=== PATIENT | male | born 1985 | race Caucasian/White ===

== ENCOUNTER 2021-06-14 08:56 | Outpatient (RCR) | payer OTHER, SELFPAY ==
--- NOTE | 2021-06-14 09:59 | HP.PTEVAL ---
Patient's Visit Information CHARLY WYLIE is a 35 year old M referred to Physical Therapy by Dr. Stephen Agosto DDS with a diagnosis of TMJ pain. Date of Evaluation: 06/14/21 Physical Therapist: Thuan Gaspar DPT, OCS, CSCS - Visit Plan Frequency: 2-3x /Week Duration: 2-4 Weeks Plan: 2-3x/week for 2-4 weeks for... look for tenderness on L pterygoid and masseter adn massage if present. isometric deviation. Mobs to L TMJ for opening. PROM L TMJ. TENS with MH for relaxation - Subjective April went on fishing trip and L side jaw had pain. Dr Menjivar sent to [facility] and needs wisdom teeth pulled. L side locked up shortly thereafter. had to reschedule wisdom teeth surgery. For some reason including possibly ice, MH and stretching it into opening. Not sure why this started on the fishing trip. This has effeccted him in that he didn't have the surgery. He has no pain left. He can now get 1.5 finger in there. This is the furthest he has been able to move it. He can work it open longer but it tightens up. Sleep is now OK. Employed as [employer] and not a problem. Hobbies are normal. Was clicking but not anymore. - Objective Walks, trasnfers and moves normally outside of jaw opening. Good mobility. neck cerevical aROM full and painfree. UE AROM WNL and withotu pain, 5/5 strength. 22mm opening no deviation in this ROM, firm endfeel. 12 mm deviation each direction in neutral. No tenderness in pterygoids or masseter today. 26mm openoing after treatment today. - Goals Goal 1:: 40 mm jaw opening without pain to facilitate eating and jaw suregery when needed. Goal Time Frame: 4-6 Weeks Goal 2:: I approp HEP to minimize future problems Goal Time Frame: 4-6 Weeks - Rehabilitation Potential Physical Therapy Diagnosis: TMJ mobility problems limiting eating and surgery. Rehabilitation Potential: Good - Anticipated Interventions Patient/Client Instruction: Educate patient on: Condition, Plan of Care For the Purpose of:: To increase ROM, To improve ability of physical actions for home/community/work/leisure Therapeutic Exercise to Include: Strength training, Passive ROM, Active ROM For the Purpose of:: To increase ROM, To improve ability of physical actions for home/community/work/leisure Thank you for the opportunity to evaluate your patient. For Medicare and Medicare HMO plans, please review the plan of care and approve it. It will need to be FAXED BACK to us at [phone] for Medicare purposes. For Medicare only, by signing this I certify the plan of care. Please let me know if there are questions or concerns regarding this plan of care. Physician Signature: Date:
--- NOTE | 2021-08-26 14:48 | HP.PT.NRP ---
CHARLY WYLIE was seen in my office for initial evaluation on 06/14/21. The following Plan of Care was established for this patient: Initial Frequency: 2-3x /Week Initial Duration: 2-4 Weeks Patient/Client Instruction: Educate patient on: Condition, Plan of Care For the Purpose of:: To increase ROM, To improve ability of physical actions for home/community/work/leisure Therapeutic Exercise to Include: Strength training, Passive ROM, Active ROM For the Purpose of:: To increase ROM, To improve ability of physical actions for home/community/work/leisure This patient was last seen in our office 06/14/21. Pertinent comments regarding their Physical therapy will appear below: Pt seen one visit for evaluation and POC established. Pt did not schedule or attend any further visits. At this point, it has been over 2 months and I will discontinue form PT. At this point I will be discontinuing this patient from physical therapy. I would be happy to see this patient again in the future if found appropriate by the physician. Thank you! Thuan Gaspar, DPT, OCS, CSCS
== END 2021-06-14 19:00 | disposition home or self-care (01) ==
LOC: PT 08:56
PROVIDERS: Referring Provider Dentist Oral and Maxillofacial Surgery; Visit Provider Dentist Oral and Maxillofacial Surgery
DX: M79.10 Myalgia, unspecified site (principal)
CPT/HCPCS: 97014; 97161; G0283

== ENCOUNTER → 2022-11-06 | Outpatient (CLI) | payer OTHER, SELFPAY ==
[2022-11-06 16:38] LABS: HIV - WCH Non-Reactive (Nonreactive); Hepatitis B Surface Antigen Non-Reactive (Nonreactive); Hepatitis C Antibody Non-Reactive (Nonreactive); Syphilis Antibodies Non-reactive
== END | disposition home or self-care (01) ==
LOC: MTLAB 11:57
PROVIDERS: Referring Provider Obstetrics & Gynecology Reproductive Endocrinology; Visit Provider Obstetrics & Gynecology Reproductive Endocrinology
DX: Z11.3 Encounter for screening for infections with a predominantly sexual mode of transmission (principal)
CPT/HCPCS: 36415; 86703; 86780; 86803; 87340